=== PATIENT | female | born 1990 | race Caucasian/White ===

== ENCOUNTER 2020-08-31 00:25 | Inpatient (IN) | payer OTHER ==
[2020-08-31] MEDS ORDERED: OXYTOCIN 10 UNIT/ML 1 ML VIAL IM PRN (01:14)
[2020-08-31] MEDS ORDERED: METHYLERGONOVINE 0.2 MG/ML 1 ML AMP IM PRN (01:14)
[2020-08-31] MEDS ORDERED: TERBUTALINE 1 MG/ML VIAL SQ PRN (01:14)
[2020-08-31] MEDS ORDERED: CARBOPROST TROMETHAMINE 250 MCG/ML 1 ML AMP IM PRN (01:14)
[2020-08-31] MEDS ORDERED: LIDOCAINE 0.5% (PF) 5 MG/ML (50 ML SDV) SQ PRN (01:14)
[2020-08-31] MEDS ORDERED: BUTORPHANOL 1 MG/ML 1 ML VIAL IV PRN (01:15)
[2020-08-31] MEDS: LACTATED RINGERS 1,000 ML IV SCH ×3 (02:13→11:27)
[2020-08-31 02:33] LABS: Basophils % (A) 0 %; Eosinophils # (A) 0.1 k/uL (0-0.7); Eosinophils % (A) 1 %; HCT 35.5 % (34.0-46.0); HGB 12.2 gm/dL (11.4-16.0); Lymphocytes # (A) 2.3 k/uL (1.0-4.8); Lymphocytes % (A) 17 %; MCH 30.1 pg (25.0-35.0); MCHC 34.5 g/dL (31.0-37.0); MCV 87.4 fL (80.0-100.0); Mean Platelet Volume 8.9; Monocytes # (A) 0.7 k/uL (0-1.0); Monocytes % (A) 5 %; Neutrophils # (A) 9.8 k/uL (1.3-7.7); Neutrophils % (A) 74 %; Platelet Count 289 k/uL (150-450); RBC 4.06 m/uL (3.80-5.40); RDW 13.3 % (11.5-15.5); WBC 13.2 k/uL (3.8-10.6)
[2020-08-31] MEDS: OXYTOCIN 30 UNITS/500 ML NS 30 UNIT in SALINE 1 500ML.BAG IV SCH ×2 (05:04→20:10)
[2020-08-31] MEDS ORDERED: ROPIVACAINE 100 MG, fentaNYL (PF). 200 MCG in SODIUM CHLORIDE 0.9% 76 ML EPIDURAL ONE (11:36)
[2020-08-31] MEDS ORDERED: BENZOCAINE/MENTHOL SPRAY 1 GM/SPRAY AEROSOL TOPICAL PRN (17:09)
[2020-08-31] MEDS ORDERED: diphenhydrAMINE 50 MG/ML 1 ML VIAL IVP PRN ×2 (17:09)
[2020-08-31] MEDS ORDERED: ACETAMINOPHEN TAB 325 MG TAB PO PRN (17:09)
[2020-08-31] MEDS ORDERED: HYDROCORTISONE 2.5% RECTAL CREAM 30 GM TUBE RECTAL PRN (17:09)
[2020-08-31] MEDS ORDERED: ZOLPIDEM 5 MG TAB PO PRN (17:09)
[2020-08-31] MEDS ORDERED: diphenhydrAMINE 25 MG CAP PO PRN (17:09)
[2020-08-31] MEDS ORDERED: LANOLIN CREAM 5 GM TUBE TOPICAL PRN (17:09)
[2020-08-31] MEDS ORDERED: diphenhydrAMINE 50 MG CAP PO PRN (17:09)
[2020-08-31] MEDS ORDERED: SIMETHICONE 80 MG CHEWABLE PO PRN (17:09)
[2020-08-31] MEDS ORDERED: OXYTOCIN 30 UNITS/500 ML NS 30 UNIT in SALINE 1 500ML.BAG IV SCH (17:15)
--- NOTE | 2020-08-31 17:19 | P.HPOB ---
History of Present Illness H&P Date: 08/31/20 Chief Complaint: IUP at 39 and 3/sevenths weeks, spontaneous rupture membranes This is a 29-year-old 1 para 0 at 39-3/7 weeks with an estimated due date of 09/04 that presents to labor and delivery with complaints of rupture of membranes. Patient states she had rupture of membranes around 2315. Patient noted the fluid to be clear. She is noting a irregular contraction at the time. She does note good movement. Patient was receiving routine care that has been essentially uncomplicated. On bloodwork patient has a blood type of A+, rubella status immune, hepatitis B surface antigen negative, HIV negative, RPR is nonreactive, group be ta strep cultures are negative. Review of Systems Constitutional: Denies chills, Denies fatigue, Denies fever Ears, nose, mouth and throat: Denies headache Cardiovascular: Reports leg edema Respiratory: Denies dyspnea Gastrointestinal: Denies constipation, Denies diarrhea, Denies nausea, Denies vomiting Genitourinary: Reports Past Medical History Past Medical History: No Reported History History of Any Multi-Drug Resistant Organisms: None Reported Additional Past Surgical History / Comment(s): [place] tooth extraction Past Anesthesia/Blood Transfusion Reactions: No Reported Reaction Past Psychological History: No Psychological Hx Reported Smoking Status: Never smoker Past Alcohol Use History: None Reported Past Drug Use History: None Reported - Past Family History Mother Family Medical History: Cancer Additional Family Medical History / Comment(s): Breast Cancer 2017 Medications and Allergies Home Medications Medication Instructions Recorded Confirmed Type Pnv No.95/Ferrous Fum/Folic AC 1 each PO DAILY 08/31/20 08/31/20 History [ Multivitamin Tablet] Allergies Allergy/AdvReac Type Severity Reaction Status Date / Time No Known Allergies Allergy Verified 08/31/20 00:30 Exam Osteopathic Statement: *. No significant issues noted on an osteopathic structural exam other than those noted in the History and Physical/Consult. Vital Signs Temp Pulse Resp BP Pulse Ox 08/31/20 01:14 98.8 F 82 16 138/84 98 Intake and Output 08/31/20 08/31/20 08/31/20 06:59 14:59 22:59 Other: # Voids 1 Weight 75.75 kg Targeted physical exam is performed at [facility] a well-nourished well-develope d female in no acute distress, breathing is nonlabored, heart has regular rate and rhythm, abdomen is gravid and appropriate for gestational age, she is to 3 cm per RN, heart tracings are noted to be category 1. She is monse irregularly. Results Result Diagrams: 08/31/20 02:05 Abnormal Lab Results - Last 24 Hours (Table) 08/31/20 Range/Units 02:05 WBC 13.2 H (3.8-10.6) k/uL Neutrophils # 9.8 H (1.3-7.7) k/uL Assessment and Plan (1) Term Current Visit: Yes Status: Acute Code(s): Z34.90 - ENCNTR FOR SUPRVSN OF NORMAL , UNSP, UNSP TRIMESTER SNOMED Code(s): 28783204 (2) SROM (spontaneous rupture of membranes) Current Visit: Yes Status: Acute Code(s): FLZ2029 - SNOMED Code(s): 468712280 Plan: This 29-year-old 1 para 0 at 39-3/7 weeks with good dating parameters presents with spontaneous rupture of membranes. Patient is admitted to labor and delivery and Pitocin augmentation of labor is begun. Patient ruptured at 2315 Pitocin was begun around 5 AM. Patient is counseled on options for analgesia during labor including Stadol and epidural. Patient states unde rstanding and will consider.
--- NOTE | 2020-08-31 17:22 | P.PROBDLV ---
Vaginal Delivery Note - . Vaginal Delivery Note: 29-year-old 1 para 0 at 39-3/7 weeks that presents to labor and delivery with complaints of spontaneous rupture of membranes at 2315. Patient states the fluid was clear in nature. Patient presented to the hospital gross rupture of membranes was appreciated. Patient was admitted to labor and delivery. After a few hours of minimal contractions patient was begun on Pitocin for augmentation of labor. Patient progressed through labor eventually becoming uncomfortable and did request epidural placement. Epidural was placed without difficulty by the anesthesia department. Patient progressed in labor began pushing was placed in a modified lithotomy position and with excellent maternal effort the head was delivered a tight nuchal cord 3 was appreciated doubly clamped and cut for delivery of the infant. Prior to delivery of a midline episiotomy was preformed secondary to arrest of descent and a large crown. Patient was immediately handed off to rug cutter for evaluation. The placenta was then delivered spontaneously intact with a three-vessel cord being noted. The placenta was delivered spontaneously intact with a three-vessel cord being noted. On inspection the patient's vaginal vault a midline second-degree episiotomy was appreciated. This was repaired in the usual fashion with 3-0 Rapide. Hemostasis was appreciated after repair. The was taken to the nursery for continued monitoring. Uterus is noted to be firm and below the umbilicus after delivery of the placenta. Estimated blood loss 200 mL. Total exam was performed and found to be normal in nature. Patient did tolerate delivery well, is in the nursery for evaluation. Pediatrics is into discuss infant status with parents. All counts were noted to be correct 2 at the end of the delivery.
[2020-08-31] MEDS: IBUPROFEN 600 MG TAB PO SCH (20:09)
[2020-08-31] MEDS: SENNOSIDES-DOCUSATE SODIUM 1 EACH TAB PO SCH (20:09)
[2020-09-01] MEDS: LACTATED RINGERS 1,000 ML IV SCH (03:20)
[2020-09-01] MEDS: IBUPROFEN 600 MG TAB PO SCH ×4 (03:21→19:47)
[2020-09-01] MEDS: SENNOSIDES-DOCUSATE SODIUM 1 EACH TAB PO SCH ×2 (08:05→19:49)
--- NOTE | 2020-09-01 08:05 | P.PNOBGVD ---
Subjective - Subjective Principal diagnosis: day 1 status post normal spontaneous vaginal delivery Interval history: 39-year-old G1 now P1 status post normal spontaneous vaginal delivery. Patient is doing well this morning. She is ambulating and voiding without difficulty. She sticks her lochia is moderate. She is attempting breast-feeding with a nipple shield. She is tolerating regular diet without nausea or vomiting. Patient reports: Reports appetite normal, Reports voiding normally, Reports pain well controlled, Reports ambulating normally Objective - Latest Vital Signs Latest vital signs: Vital Signs Temp Pulse Resp BP Pulse Ox 09/01/20 04:00 98.4 F 87 16 119/55 98 08/31/20 23:52 98.2 F 67 16 120/73 08/31/20 20:00 98.2 F 75 16 120/67 08/31/20 18:57 75 16 116/55 08/31/20 18:27 89 16 109/62 08/31/20 17:57 85 16 114/62 08/31/20 17:42 81 16 116/62 08/31/20 17:27 93 16 114/57 08/31/20 17:12 104 H 16 129/58 08/31/20 16:57 103 H 16 131/59 Intake and Output 08/31/20 09/01/20 09/01/20 22:59 06:59 14:59 Intake Total 15.1 Output Total 200 Balance -184.9 Intake: Intake, IV Titration 15.1 Amount Oxytocin 30 Units/500 ml 15.1 Ns 30 unit In Saline 1 500ml.bag @ Per Protocol IV .Q0M [facility] Rx#:[id number] Output: Estimated Blood Loss 200 Other: # Voids 1 - Exam Extremities: Present: normal, edema Abdomen: Present: normal appearance, soft Uterus: Present: normal, firm Assessment and Plan (1) Term Current Visit: Yes Status: Acute Code(s): Z34.90 - ENCNTR FOR SUPRVSN OF NORMAL , UNSP, UNSP TRIMESTER SNOMED Code(s): 11653185 (2) SROM (spontaneous rupture of membranes) Current Visit: Yes Status: Acute Code(s): ILT0373 - SNOMED Code(s): 662619570 (3) Status post normal vaginal delivery Current Visit: Yes Status: Acute Code(s): BKH6066 - SNOMED Code(s): 195782042 Plan: Patient is doing well . We will monitor breast-feeding today. Continue routine care.
[2020-09-01] MEDS ORDERED: PRENATAL VIT-IRON-FOLIC ACID 1 EACH CAP PO SCH (09:00)
[2020-09-02 02:07] VITALS: BP 115/72; RESP 16
[2020-09-02] MEDS: IBUPROFEN 600 MG TAB PO SCH ×2 (05:24→06:34)
[2020-09-02 09:00] VITALS: PULSE 73; TEMP 98.9
[2020-09-02] MEDS: SENNOSIDES-DOCUSATE SODIUM 1 EACH TAB PO SCH (09:00)
--- NOTE | 2020-09-02 09:16 | P.DS ---
Providers Date of admission: 08/31/20 01:12 Expected date of discharge: 09/02/20 Attending physician: Vivian Brothers Primary care physician: Stated None - Discharge Diagnosis(es) (1) Term Current Visit: Yes Status: Acute (2) SROM (spontaneous rupture of membranes) Current Visit: Yes Status: Acute (3) Status post normal vaginal delivery Current Visit: Yes Status: Acute Hospital Course: This is a 29-year-old 1 para 0 that presented to labor and delivery at 39-3/7 weeks with complaints of spontaneous rupture of membranes. Patient states that fluid was clear in nature. Patient was admitted to labor and delivery minimal contractions were noted therefore augmentation with Pitocin was begun. Patient progressed in labor eventually becoming uncomfortable and requesting epidural placement. Patient progressed to complete began pushing, arrest of descent was noted at a large , midline episiotomy was performed. Infant had a tight nuchal cord 3 which was clamped and cut on the perineum and the infant was delivered. Midline episiotomy was noted to be second-degree in nature no extension. This laceration was repaired in usual fashion with 3-0 Rapide. Hemostasis was appreciated afterwards. Viable female delivered at 1646, weight of 7 lbs. 0 oz. with Apgars of 4,7,9 at 1, 5 and 10 minutes respectively. was initially taken to the nursery for evaluation and returned to patient's room. Patient's course has been uneventful. On this day #2 she is ambulating and voiding without difficulty. She is tolerating a regular diet without nausea or vomiting. She states her pain is well-controlled. She would like discharge home. Plan - Discharge Summary New Discharge Prescriptions: No Action Pnv No.95/Ferrous Fum/Folic AC [ Multivitamin Tablet] 1 each PO DAILY Discharge Medication List Pnv No.95/Ferrous Fum/Folic AC [ Multivitamin Tablet] 1 each PO DAILY [History]
== END 2020-09-02 10:45 | disposition home or self-care (01) | DRG 807 ==
LOC: FBPOP 00:25 → 4FBP 01:12
PROVIDERS: ADMIT Obstetrics & Gynecology; ATTEND Obstetrics & Gynecology Obstetrics
PROC: 10E0XZZ Delivery of Products of Conception, External Approach (ICD-10-PCS; principal; 2020-08-31)
DX: O62.1 Secondary uterine inertia (principal); Z37.0 Single live birth; O69.1XX0 Labor and delivery complicated by cord around neck, with compression, not applicable or unspecified; Z3A.39 39 weeks gestation of pregnancy
CPT/HCPCS: 59025; 84112; 85025; 86850; 86900; 86901; 99213